=== PATIENT | female | born 1990 | race Two or more races ===

== ENCOUNTER 2017-03-07 22:18 | Emergency (ER) | payer OTHER ==
[2017-03-07 22:49] VITALS: BP 155/99
[2017-03-07 23:38] LABS: ABSOLUTE EOSINOPHILS # (AUTO) 0.2 10^3/uL (0.0-0.6); ABSOLUTE LYMPHOCYTES (AUTO) 2.2 10^3/uL (0.5-4.7); ABSOLUTE MONOCYTES (AUTO) 0.6 10^3/uL (0.1-1.4); ABSOLUTE NEUT (AUTO) 3.4 10^3/uL (1.7-8.2); BASOPHILS % (AUTO) 0.6 % (0-2); EOSINOPHILS % (AUTO) 2.4 % (0-6); HEMATOCRIT 36.7 % (36.0-47.0); HEMOGLOBIN 12.5 g/dL (12.0-15.5); HGB HCT DIFFERENCE 0.8; LYMPHOCYTES % (AUTO) 34.6 % (13-45); MEAN CORPUSCULAR HEMOGLOBIN 29.8 pg (27.0-33.4); MEAN CORPUSCULAR HGB CONC 34.1 g/dL (32.0-36.0); MEAN CORPUSCULAR VOLUME 87 fl (80-97); RED CELL DISTRIBUTION WIDTH 13.5 % (11.5-14.0); SEGMENTED NEUTROPHILS % (AUTO) 53.4 % (42-78); WHITE BLOOD COUNT 6.4 10^3/uL (4.0-10.5)
[2017-03-07 23:41] LABS: APPEARANCE,URINE CLEAR; BILIRUBIN,URINE NEGATIVE (NEGATIVE); GLUCOSE, URINE NEGATIVE (NEGATIVE); KETONES,URINE NEGATIVE (NEGATIVE); LEUKOCYTE ESTERASE,URINE NEGATIVE (NEGATIVE); NITRITE,URINE NEGATIVE (NEGATIVE); PROTEIN,URINE NEGATIVE (NEGATIVE); URINE SPECIFIC GRAVITY 1.018; UROBILINOGEN,URINE NEGATIVE mg/dL (<2.0)
[2017-03-07 23:52] LABS: ALANINE AMINOTRANSFERASE 30 U/L (9-52); ALBUMIN 4.2 g/dL (3.5-5.0); ALKALINE PHOSPHATASE 46 U/L (38-126); ANION GAP 10 (5-19); ASPARTATE AMINO TRANSFERASE 14 U/L (14-36); BILIRUBIN,DIRECT 0.3 mg/dL (0.0-0.4); BILIRUBIN,TOTAL 0.4 mg/dL (0.2-1.3); BLOOD UREA NITROGEN 14 mg/dL (7-20); CALCIUM 9.5 mg/dL (8.4-10.2); CARBON DIOXIDE 28 mmol/L (22-30); CHLORIDE 101 mmol/L (98-107); CREATININE RESULT 0.81 mg/dL (0.52-1.25); GLUCOSE 114 mg/dL (75-110); SODIUM 138.9 mmol/L (137-145); TOTAL PROTEIN 7.2 g/dL (6.3-8.2)
[2017-03-08] MEDS ORDERED: HYDROXYZINE PAMOATE 50 MG CAPSULE PO ONE (00:07)
--- NOTE | 2017-03-08 00:12 | ER Document Report ---
ED General - General Chief Complaint: Anxiety Stated Complaint: ABDOMINAL PAIN POSSIBLE ANXIETY Time Seen by Provider: 03/08/17 00:00 Notes: Patient is a 26-year-old female who presents with complaint of some abdominal cramping and thoughts that she may be . She is late on her menstrual period. Patient also says that 2 days ago she found out that she might be and therefore she stopped taking anxiety medications because she found out that they might not be safe in . These medications include Prozac , Remeron, and Klonopin. Patient says that since she has been anxious and has a long history of anxiety. She denies any fevers. No vomiting. No abnormal vaginal bleeding or discharge. This is her first . She has no other complaints or concerns at this time. TRAVEL OUTSIDE OF THE [place] IN LAST 30 DAYS: No - Related Data Allergies/Adverse Reactions: amoxicillin Allergy (Verified 03/07/17 22:47) cortisone Allergy (Verified 03/07/17 22:47) Iodine and Iodide Containing Produc Allergy (Verified 03/07/17 22:47) Penicillins Allergy (Verified 03/07/17 22:47) Past Medical History - Social History Smoking Status: Never Smoker Frequency of alcohol use: None Drug Abuse: None Family History: Reviewed & Not Pertinent Patient has suicidal ideation: No Patient has homicidal ideation: No Renal/ Medical History: Denies: Hx Peritoneal Dialysis Review of Systems - Review of Systems Notes: My Normal Review Basic REVIEW OF SYSTEMS: CONSTITUTIONAL : Denies fever, chills, or sweats. Denies recent illness. EENT: Denies eye, ear, throat, or mouth pain or symptoms. Denies nasal or sinus congestion. RESPIRATORY: Denies cough, cold, or chest congestion. Denies shortness of breath, difficulty breathing, or wheezing. GASTROINTESTINAL: Intermittent abdominal cramping.. Denies nausea, vomiting, or diarrhea. Denies constipation. Last BM: GENITOURINARY: Denies difficulty urinating, painful urination, burning, frequency, or blood in urine. FEMALE GENITOURINARY: Denies vaginal bleeding, abnormal or irregular periods. Currently . MUSCULOSKELETAL: Denies neck or back pain or joint pain or swelling. SKIN: Denies rash or skin lesions. NEUROLOGICAL: Denies altered mental status or loss of consciousness. Denies headache. Denies weakness or paralysis or loss of use of either side. Denies problems with gait or speech. Denies sensory or motor loss. PSYCHIATRIC: anxiety ALL OTHER SYSTEMS REVIEWED AND NEGATIVE. Physical Exam - Vital signs Vitals: Temp Pulse Resp BP Pulse Ox 98.4 F 87 16 155/99 H 100 03/07/17 22:49 10 22:49 10 22:49 10 22:49 03/07/17 22:49 - Notes Notes: General Appearance: Well nourished, alert, cooperative, no acute distress, no obvious discomfort. Vitals: reviewed, See vital signs table. Head: no swelling or tenderness to the head Eyes: PERRL, EOMI, Conjuctiva clear Mouth: No decreasd moisture Throat: No tonsillar inflammation Lungs: No wheezing, No rales, No rhonci, No accessory muscle use, good air exchange bilaterally. Heart: Normal rate, Regular rythm, No murmur, no rub Abdomen: Normal BS, soft, No rigidity, No reducible abdominal tenderness palpation, No guarding, no rebound, no abdominal masses, no organomegaly Extremities: strength 5/5 in all extremities, good pulses in all extremities, no swelling or tenderness in the extremities, no edema. Skin: warm, dry, appropriate color, no rash Neuro: speech clear, oriented x 3, normal affect, responds appropriately to questions. Psychiatric: Patient is twitching her foot and says she is anxious however she is very happy and upbeat and smiling after I informed her that she was indeed . Course - Re-evaluation Re-evalutation: 03/08/17 03:44 I did discuss the potential foreign body that was seen on ultrasound the patient. Patient denies ever having an IUD. She denies any history of vaginal penetration with any type of sex toys or any other type of foreign body. I did do a pelvic exam which just showed some normal-appearing whitish discharge. I do not see anything protruding from cervical office. She has no significant pain on exam. She looks well clinically. I did discuss the case with the OB/ [employer] physician on-call, Dr. Burden, who says to have the patient call the office for close follow-up appointment and they will review the ultrasounds and reexamine her. I did explain to the patient she is agreeable to this. I encouraged her return to ER immediately if she has fevers, recurrent pains, any vaginal bleeding, any abnormal vaginal discharge, or she feels unwell. I informed her to start taking vitamins. I will prescribe her Vistaril due to her history of anxiety and having to stop her anxiety medications. She is to return if she has worsening anxiety with ongoing tremor despite taking Vistaril. I did inform her that the Vistaril will make her sleepy and that she should not drive when taking this medication. Patient agrees with plan will be discharged home. Dictation of this chart was performed using voice recognition software; therefore, there may be some unintended grammatical errors. - Vital Signs Vital signs: Temp Pulse Resp BP Pulse Ox 98.4 F 87 16 155/99 H 100 03/07/17 22:49 03/07/17 22:49 03/07/17 22:49 03/07/17 22:49 03/07/17 22:49 - Laboratory Result Diagrams: 03/07/17 23:20 03/07/17 23:20 Laboratory results interpreted by me: 03/07/17 03/07/17 03/07/17 23:20 23:20 23:20 Glucose 114 H Beta HCG, Quant 155.46 H Urine HCG, Qual POSITIVE H Discharge - Discharge Clinical Impression: abnormality on cervix on ultrasound Abdominal pain Qualifiers: Abdominal location: lower abdomen, unspecified Qualified Code(s): R10.30 - Lower abdominal pain, unspecified Qualifiers: Weeks of gestation: less than 8 weeks Qualified Code(s): Z3A.01 - Less than 8 weeks gestation of Condition: Good Disposition: HOME, SELF-CARE Additional Instructions: Your blood work does show that you are . Please take [id number] vitamins. He can find this in the pharmacy section of any store. Your ultrasound does show evidence of a hyperdense area which could be consistent with a foreign body or potential calcification of the cervix. It is extremely important that this is followed up by the [facility] physician for reeavluation further workup to see exactly what it is. [facility] and informed them that the ER physician spoke with Dr. Frantz Burden requested that he be followed up within the next 2-3 days to be reevaluated for this and your new . The phone number is under Dr. Frantz Burden name on the discharge paperwork. Please return to the ER immediately if you have fevers, abnormal vaginal discharge, vaginal bleeding, increasing abdominal pain, or shaking and anxiety that is not controlled by the Vistaril. Prescriptions: Hydroxyzine Pamoate [Vistaril 25 mg Capsule] 25 mg PO BID #30 capsule Referrals: NILDA BURDEN MD [ACTIVE STAFF] - 03/08/17
--- NOTE | 2017-03-08 02:17 | RADIOLOGY REPORT (SQ) ---
EXAM DESCRIPTION: U/S OB TRANSVAG W/DOPPLER COMPLETED DATE/TIME: 03/08/2017 1:55 am REASON FOR STUDY: abdominal pain in COMPARISON: None. TECHNIQUE: Transvaginal static and realtime grayscale images acquired of the pelvis. Additional sebastian cted spectral and color Doppler images recorded. All images stored on PACs. BHC.46 LIMITATIONS: None. FINDINGS: UTERUS: The uterus measures 9.1 x 4.1 x 6.9 cm. No visualized intrauterine . Th e cervix measures 3.1 cm in length. Linear echogenicity at the cervix measuring 1.7 cm in length. RIGHT ADNEXA: The right ovary measures 3.8 x 2.5 x 3.1 cm. Flow by Doppler was shown to the right ov jarret. There is a 2.2 cm cystic area with internal echoes, may represent a hemorrhagic cyst. LEFT ADNEXA: The left ovary measures 3.5 x 1.8 x 1.9 cm. Flow by Doppler was shown to the left ovary . FREE FLUID: None. OTHER: No other significant finding. IMPRESSION: NO VISUALIZED INTRA- OR EXTRAUTERINE . ECTOPIC CANNOT BE EXCLUDED. FOLLOW-UP ULTRASOUND AND SERIAL BHCG LEVELS STRONGLY RECOMMENDED TO ACCURATELY ASSESS STATU S. LINEAR ECHOGENICITY AT THE CERVIX MEASURING 1.7 CM IN LENGTH, SUGGESTIVE OF A FOREIGN BODY, POSSIBLY AN IUD REMNANT. PLEASE CORRELATE WITH CLINICAL HISTORY/EXAM. 2.2 CM HEMORRHAGIC CYST AT THE RIGHT OVARY. TECHNICAL DOCUMENTATION: JOB ID: [id number] [employer]- All Rights Reserved
[2017-03-08] MEDS ORDERED: HYDROXYZINE PAMOATE 25 MG CAPSULE #4 (ER DISP) PO PRN (03:46)
== END 2017-03-08 04:52 | disposition home or self-care (01) ==
LOC: ER 22:18
DX: R10.30 Lower abdominal pain, unspecified (principal); F41.9 Anxiety disorder, unspecified; Z3A.01 Less than 8 weeks gestation of pregnancy
CPT/HCPCS: 36415; 76817; 80053; 81001; 81025; 84702; 85025; 93976; 99284